=== PATIENT | female | born 1990 | race Caucasian/White ===

== ENCOUNTER 2017-08-06 22:06 | Observation (INO) | payer BC, OTHER ==
[2017-08-06 23:12] LABS: ABS Basophils 0 10^3/ul (0-0.2); ABS Eosinophils 0 10^3/ul (0-0.6); ABS Lymphocytes 1.6 10^3/ul (1.0-4.8); ABS Monocytes 0.8 10^3/ul (0-0.8); ABS Neutrophils 14.4 10^3/ul (1.5-7.7); ABS Nucleated RBC 0 10^3/ul; Eosinophil % 0.1 % (0-6); Hematocrit 39 % (35-47); Hemoglobin 12.9 g/dl (12.0-16.0); Lymphocyte % 9.3 % (25-47); Mean Corpuscular HGB Conc 33 g/dl (31-36); Mean Corpuscular Hemoglobin 28 pg (27-31); Mean Corpuscular Volume 85 fL (80-97); Mean Platelet Volume 8 um3 (7.4-10.4); Nucleated Red Blood Cells % 0; Platelet Count 285 10^3/ul (150-450); Red Blood Count 4.61 10^6/ul (4.0-5.4); Red Cell Distribution Width 14 % (10.5-15); White Blood Count 16.8 10^3/ul (3.5-10.8)
[2017-08-06] MEDS ORDERED: NS 0.9% 1000 ML* 1,000 ML IV ONE (23:52)
--- NOTE | 2017-08-07 00:08 | ED ---
Andrey Anguiano Thomas, scribed for Liberty Moreno MD on 08/06/17 at 2306 . Substance Abuse/Use - HPI Summary HPI Summary: The patient is a 27 year old female brought in by ambulance after she took however many of my Abilify were in the bottle at 19:00. She was trying to kill herself. She does not remember how many she took. She vomited in the ambulance en route to [facility]. She is tired. - History Of Current Complaint Chief Complaint: EDMentalHealth Stated Complaint: OVERDOSE Time Seen by Provider: 08/06/17 22:24 Hx Obtained From: Patient Ingestion History: Type/Name Of Drug - Abilify, others Overdose Characteristics: Oral Severity Currently: Mild Alleviating Factor(s): Nothing Associated Signs And Symptoms: Intentional Ingestion, Other: - Suicide attempt, vomiting Related Hx: Suicidal - Allergies/Home Medications Allergies/Adverse Reactions: Allergies Allergy/AdvReac Type Severity Reaction Status Date / Time No Known Allergies Allergy Verified 07/30/12 07:30 PMH/Surg Hx/FS Hx/Imm Hx Sensory History: Reports: Hx Contacts or Glasses - GLASSES Denies: Hx Hearing Aid Opthamlomology History: Reports: Hx Contacts or Glasses - GLASSES EENT History: Denies: Hx Deafness Psychiatric History: Reports: Hx Depression - Surgical History Hx Anesthesia Reactions: Yes - AFTER INTERTHECAL/EPIDURAL, SIGNIFIGANT B/P DROP, REQUIRED O2 AND MEDICATION Infectious Disease History: No Infectious Disease History: Denies: Traveled Outside the [place] in Last 30 Days - Family History Known Family History: Negative: Other - Patient denies relevant FHx - Social History Alcohol Use: None Substance Use Type: Reports: None Smoking Status (MU): Never Smoked Tobacco Review of Systems Negative: Fever Positive: Vomiting Positive: Other - Suicide attempt, intentional ingestion All Other Systems Reviewed And Are Negative: Yes Physical Exam - Summary Physical Exam Summary: VITAL SIGNS: Reviewed. GENERAL: Patient is a well-developed and nourished FEMALE who is lying comfortable in the stretcher. Patient is not in any acute respiratory distress. She is cooperative and morbidly obese. HEAD AND FACE: No signs of trauma. No ecchymosis, hematomas or skull depressions. No sinus tenderness. EYES: PERRLA, EOMI x 2, No injected conjunctiva, no nystagmus. EARS: Hearing grossly intact. Ear canals and tympanic membranes are within normal limits. MOUTH: Oropharynx within normal limits. NECK: Supple, trachea is midline, no adenopathy, no JVD, no carotid bruit, no c- spine tenderness, neck with full ROM. CHEST: Symmetric, no tenderness at palpation LUNGS: Clear to auscultation bilaterally. No wheezing or crackles. CVS: Regular rate and rhythm, S1 and S2 present, no murmurs or gallops appreciated. ABDOMEN: Soft, non-tender. No signs of distention. No rebound no guarding, and no masses palpated. Bowel sounds are normal. EXTREMITIES: FROM in all major joints, no edema, no cyanosis or clubbing. NEURO: Alert and oriented x 3. No acute neurological deficits. Speech is normal and follows commands. She is cooperative. SKIN: Dry and warm Triage Information Reviewed: Yes Vital Signs On Initial Exam: Initial Vitals Temp Pulse Resp BP Pulse Ox 97.3 F 95 16 135/89 96 08/06/17 22:15 08/06/17 22:15 08/06/17 22:15 08/06/17 22:15 08/06/17 22:15 Vital Signs Reviewed: Yes Diagnostics - Vital Signs Vital Signs Temp Pulse Resp BP Pulse Ox 08/06/17 22:41 104 22 98 08/06/17 22:39 133/82 08/06/17 22:15 97.3 F 95 16 135/89 96 - Laboratory Result Diagrams: 08/06/17 23:02 08/06/17 23:02 Lab Statement: Any lab studies that have been ordered have been reviewed, and results considered in the medical decision making process. - EKG 23:06 Cardiac Rate: NL EKG Rhythm: Sinus Rhythm - at 98 BPM EKG Interpretation: Normal axis, normal intervals, no acute ischemic change. Course/Dx - Course Assessment/Plan: The patient is a 27 year old female brought in by ambulance after she took however many of my Abilify were in the bottle at 19:00. She was trying to kill herself. She does not remember how many she took. She vomited in the ambulance en route to [facility]. She is tired. Bloodwork, urinalysis, and toxicology were obtained. The patient is admitted to Dr. Regalado. - Diagnoses Provider Diagnoses: Lexapro overdose - Physician Notifications Discussed Care Of Patient With: Miriam Regalado Time Discussed With Above Provider: 00:00 Instructed by Provider To: Admit As Inpatient Discharge - Discharge Plan Condition: Fair Disposition: ADMITTED TO [facility] Referrals: Payam Fried MD [Primary Care Provider] - The documentation as recorded by the Andrey quintana Thomas accurately reflects the service I personally performed and the decisions made by me, Liberty Moreno MD.
[2017-08-07] MEDS ORDERED: Docusate CAP* 100 MG PO PRN (00:30)
[2017-08-07] MEDS ORDERED: Senna TAB PO PRN (00:30)
[2017-08-07] MEDS ORDERED: Al Hydrox/Mg Hydrox/Simet LIQ* 30 ML UDC PO PRN (00:30)
[2017-08-07] MEDS ORDERED: Acetaminophen TAB* 325 MG PO PRN (00:30)
[2017-08-07] MEDS ORDERED: Ondansetron INJ* 2 MG/ML VIAL IV PRN (00:30)
[2017-08-07 02:15] LABS: Urine Appearance Cloudy; Urine Blood Negative (Negative); Urine Color Yellow; Urine Ketones 1+ (Negative); Urine Protein Negative (Negative); Urine Specific Gravity 1.016 (1.010-1.030); Urine Urobilinogen Negative (Negative)
--- NOTE | 2017-08-07 03:22 | HP ---
CC: Dr. Payam Fried * HISTORY AND PHYSICAL: DATE OF ADMISSION: 08/07/17 TIME OF EVALUATION: 0030. PRIMARY CARE PHYSICIAN: Payam Fried MD CHIEF COMPLAINT: Toxic ingestion. HISTORY OF PRESENT ILLNESS: This is a 27-year-old female with past medical history of depression, who presented to [facility] via EMS after ingesting multiple pills. On my encounter, the patient states she grabbed several medications, was not sure what they were, old medications or new ones, with the intent of harming herself. She then told her , who then called EMS. She states she took them before 9 p.m. According to the ER records, it was Lexapro, Abilify , Tylenol, and Benadryl. She said she has had old prescription medications of Lexapro, Abilify, and does not take them routinely anymore. She states she was recently started on Paxil, supposed to start therapy this week, but she says she is no longer feeling the will to live any longer. She never hurt herself in the past. She states she no longer feels suicidal. She was nauseated and vomiting several times earlier. No longer nauseous. No chest pain or shortness of breath. Otherwise, review of systems is negative. In the emergency room, the patient had labs, EKG. Poison Control was called. They recommended monitoring on telemetry overnight for 24 hours. The patient was given 1 L of normal saline and referred to the hospitalist service for further evaluation. PAST MEDICAL HISTORY: 1. Depression. 2. Morbid obesity. 3. History of a gastric sleeve in 2012. MEDICATIONS: The patient was just started on Paxil, she is not sure what dose it is. ALLERGIES: No known drug allergies. FAMILY HISTORY: Father with depression. SOCIAL HISTORY: The patient lives at home with her and her 2 children, ages 7 and 5. No alcohol, tobacco, or illicit drug use. She works in [employer]. Code status is full code. REVIEW OF SYSTEMS: A 14-point review of systems as mentioned in the HPI, otherwise negative. PHYSICAL EXAMINATION GENERAL: No acute distress, resting comfortably. VITAL SIGNS: Temp 97.3, pulse rate 100, respiratory rate 22, oxygen saturation 97% on room air, and blood pressure 120/60. HEENT: Head: Normocephalic. Pupils are dilated and reactive. Anicteric. Oropharynx, mucous membranes moist. NECK: Supple. No lymphadenopathy. RESPIRATORY: Clear to auscultation. No wheezing, rhonchi, or rales. CARDIAC: Tachycardic. No murmurs, rubs, or gallops. ABDOMEN: Soft, nontender, nondistended. EXTREMITIES: No clubbing, cyanosis, or edema. +2 DPs. NEUROLOGIC: Alert and oriented x3. No focal neurologic deficits. DIAGNOSTIC STUDIES/LAB DATA: White count 16.8, hemoglobin 12.9, hematocrit 39 , platelets 285. Sodium 138, potassium 3.6, chloride 108, bicarb 21, BUN 8, creatinine 0.89, glucose 115. TSH 3.23. Beta hCG 0.94. Tylenol level was 26. Salicylates less than 2.5. Serum alcohol less than 10. Radiographic data: EKG shows normal sinus rhythm with a QTc of 467, QRS of 96. ASSESSMENT AND PLAN: This is a 27-year-old female with past medical history of depression, who presents to the emergency room via EMS after having a suicide attempt with multiple medications. 1. Toxic ingestion with suicide attempt. Assessment/plan: The patient is going to be observed overnight on telemetry. Poison Control recommended repeating an EKG in 3 hours from initial one to monitor the QRS. The plan will be to treat with benzos if she becomes tachycardic or hypertensive. We will place Social Work consult and Psych consult and one-to-one on her as well. We will also repeat her Tylenol level 4 hours from her initial one. 2. Depression. We will hold her Paxil, as we do not know what dose she is on and will follow up with Psychiatry in terms of further regimen for her mental health concerns. 3. FEN. Regular diet. 4. DVT prophylaxis. The patient scores a low risk. We will encourage ambulation. PATIENT TIME: Greater than 45 minutes spent doing the history and physical, more than half time spent in direct patient contact. [id number]/[place] #: [id number] YADIEL
[2017-08-07] MEDS ORDERED: NS 0.9% 1000 ML* 1,000 ML IV ONE (12:47)
--- NOTE | 2017-08-07 12:55 | PN ---
Subjective Date of Service: 08/07/17 Interval History: Patient seen and examined. States she feels fatigue but ok. Denies n/v/d, no chest pain, no SOB, no headache or dizziness. Discussed findings of her eval with Dr. Rodgers, 1:1 discontinued, patient's in room. Requested patient to ambulate in hallway before DC tele to eval for gait or other symptoms. Objective Active Medications: Acetaminophen (Tylenol Tab*) 650 mg PO Q4H PRN PRN Reason: FEVER/PAIN Al Hydrox/Mg Hydrox/Simethicone (Maalox Plus*) 30 ml PO Q6H PRN PRN Reason: INDIGESTION Docusate Sodium (Colace Cap*) 100 mg PO BID PRN PRN Reason: CONSTIPATION Sodium Chloride (Ns 0.9% 1000 Ml*) 1,000 mls @ 500 mls/hr IV .PER RATE ONE Stop: 08/07/17 14:46 Ondansetron HCl (Zofran Inj*) 4 mg IV Q4H PRN PRN Reason: NAUSEA/VOMITING Senna (Senokot Tab*) 1 tab PO BID PRN PRN Reason: CONSTIPATION Vital Signs - 8 hr 08/07/17 08/07/17 04:55 08:56 Temperature 97.9 F 98.3 F Pulse Rate 107 94 Respiratory 18 18 Rate Blood Pressure 133/85 126/65 (mmHg) O2 Sat by Pulse 99 98 Oximetry Oxygen Devices in Use Now: None Appearance: Alert, NAD Eyes: No Scleral Icterus, - - Dilated pupils, 4mm Ears/Nose/Mouth/Throat: Clear Oropharnyx Neck: Trachea Midline Respiratory: Symmetrical Chest Expansion and Respiratory Effort, Clear to Auscultation Cardiovascular: NL Sounds; No Murmurs; No JVD, RRR Abdominal: NL Sounds; No Tenderness; No Distention Extremities: No Edema Skin: No Rash or Ulcers Neurological: Alert and Oriented x 3, NL Gait Nutrition: Taking PO's Result Diagrams: 08/06/17 23:02 08/06/17 23:02 Assess/Plan/Problems-Billing Assessment: - Patient Problems (1) Intentional overdose of drug in tablet form Code(s): T50.902A - POISONING BY UNSP DRUG/MEDS/BIOL SUBST, SELF-HARM, INIT SNOMED Code(s): 532379016 Comment: - Poison control contacted, monitor for QT changes - Patient with significant tachycardia, high 130's with PVCs with slow ambulation in hallway, returns to RSR when in bed; per Poison Control, give additional fluid bolus and continue on tele. Likely culprit is diphenhydramine which may take a few days to wash out - Psychiatric consult appreciated, 1:[address] Rodgers, patient has follow up intake appointment with Michael tomorrow for outpatient treatment. He feels she will be able to be DC to home with outpatient follow up as opposed to mandatory inpatient. (2) Depression Code(s): F32.9 - MAJOR DEPRESSIVE DISORDER, SINGLE EPISODE, UNSPECIFIED SNOMED Code(s): 23541924 Comment: - Mood stable, continue to monitor and contract for safety (3) Obesity (BMI 35.0-39.9 without comorbidity) Code(s): E66.9 - OBESITY, UNSPECIFIED SNOMED Code(s): 851941587 Comment: - S/P gastric sleeve Status and Disposition: Remain inpatient per Poison Control for Cardiac Monitoring.
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
[2017-08-08 07:39] VITALS: BP 128/79
--- NOTE | 2017-08-09 12:30 | DS ---
CC: Dr. Payam Fried; Dr. Miriam Regalado DISCHARGE SUMMARY: DATE OF ADMISSION: 08/06/17 DATE OF DISCHARGE: 08/08/17 PRIMARY CARE PROVIDER: Payam Fried MD. ATTENDING FOR THIS ADMISSION: Dr. Miriam Regalado. HOSPITAL COURSE: This is a 27-year-old female patient who was brought to the emergency department vi a EMS for intentional overdose of prescription and over-the- counter medications. The patient states that it was a combination of Lexapro, Abilify, Tylenol and Benadryl. The patient apparently had iam e issues with depression, was recently started on Paxil and was set to start intake therapy with [facility] when she had an argument I think at home and as an act of desperation had an impulsive ingestion of these pills saying that she did not want to live anymore. The patient was then brought to the emergency department. She was nauseous and vomiting at home. She was not gi olivia charcoal and there was no additional vomiting. While she was in the emergency department, poison control determined that the patient should be monitored on telemetry for at least 24 hours to look f or prolonged QT and any other cardiac arrhythmias. The patient was aggressively hydrated with normal saline and admitted for observation. At about the 24 hour thomas, we had the patient walk while she wa s on telemetry to see if would have any changes in her heart rhythm. She became tachycardic in the hi gh 130s and had some PVCs with just basic ambulation and not really any exertion. Poison control was contacted again. They advised giving more fluids and continued observation. Today on the , she is awake and alert. She has had no further episodes of tachycardia. No other arrhythmias. No other changes in her EKG. The patient had already arranged her intake with [facility]. She was seen by the psychiatrist, Dr. Rodgers, who recommended initially that her one-to-one watch that she was on be disc ontinued. The patient was stable. At that point, he did not feel that she was suicidal any longer. She has a good support system and already has outpatient followup, so he essentially cleared her for discharge back to home with outpatient behavioral health. DISCHARGE DIAGNOSES: 1. Intentional overdose. 2. History of depression and post-traumatic stress disorder. 3. Obesity, history of gastric sleeve in 2012. DISCHARGE MEDICATIONS: The patient may restart her Paxil 10 mg daily and then any further followup a nd recommendations when she starts her outpatient behavioral health plan. PHYSICAL EXAMINATION: The patient is awake, and alert in no acute distress. Vital Signs: Currently, blood pressure is 128/79, heart rate 97, respiratory rate 16, satting at 99% on room air. Temperatu re is 98.8. HEENT: The patient is atraumatic, normocephalic. PERRLA with nonicteric sclerae. Neck : Supple and nontender. No JVD noted. No thyromegaly appreciated. Cardiovascular: S1, S2 present . No murmurs, gallops, or rubs. Rate and rhythm are currently regular. She has no ectopy on telemet ry. Lungs: Clear bilaterally to auscultation with no wheezing, rhonchi or rales. Abdomen: Soft, n ontender, nondistended. Positive bowel sounds in all 4 quadrants. No organomegaly noted. : Defe rred. Musculoskeletal: There is no clubbing, no cyanosis and no edema. She has a steady gait. She has gross motor and sensation intact. Neurologic: She is grossly intact with no focal deficits. Ps ychiatric: She is calm and cooperative. She appears appropriate. She contracted for safety. She i s stating that she does not have current suicidal ideations and appears to have insight into this rec ent episode. DIAGNOSTIC STUDIES/LAB DATA: At the time of admission, WBC 16.8, RBC is 4.61, hemoglobin 12.9, hemat ocrit 39, platelets 285. Sodium 138, potassium 3.6, chloride 108, CO2 21, BUN 8, creatinine 0.89, GF R is 75. Glucose 115, calcium 8.8. Liver function: AST 16, ALT 11, alk phos 81, total protein 7.1, albumin 4.0. TSH 3.23. Urinalysis was negative. Toxicology: Urine toxicology shows acetaminophen l evel of 26 at admission and less than 15 on the . Serum alcohol was less than 10 and salicylates less than 2.50. The patient was ready for discharge on . All questions were answered. The patient verbalized hayes curtis understanding of the followups and her medications at home. She was instructed to follow up with hayes r primary care doctor and also with [facility]. Again, she has an intake appointment for 4 o'clock today. We are hoping that she can still meet that as she has the day of discharge today. If not, she has another intake set up for 08/24/17 and the [facility] is aware that the patien t was acutely hospitalized. ASH BROWN, DOOR REPAIRER BUS [id number]/[facility] #: [id number]
== END 2017-08-08 13:20 | disposition home or self-care (01) ==
LOC: ED 22:06 → MEDTELE 08-07 00:52
PROVIDERS: ADMIT Pediatrics; ATTEND Pediatrics
DX: T43.222A Poisoning by selective serotonin reuptake inhibitors, intentional self-harm, initial encounter (principal); R11.10 Vomiting, unspecified; Y92.9 Unspecified place or not applicable
CPT/HCPCS: 36415; 80053; 80320; 80329; 81003; 81015; 84443; 84702; 85025; 87086; 93005; 96374; 99284; G0378; G0480

== ENCOUNTER 2022-12-18 17:37 | Inpatient (IN) ==
[2022-12-18] MEDS ORDERED: HYDROcodone/Acetamin 10/325 TAB (NF) PO ONE (18:06)
[2022-12-18 18:35] LABS: ABS Basophils 0.1 10^3/uL (0.0-0.1); ABS Eosinophils 0.1 10^3/uL (0.0-0.5); ABS Lymphocytes 2.1 10^3/uL (1.0-4.8); ABS Monocytes 0.6 10^3/uL (0.0-0.9); ABS Neutrophils 5.9 10^3/uL (1.5-7.6); ABS Nucleated RBC 0.01 10^3/ul; Eosinophil % 1.5 %; Hematocrit 35.2 % (35-45); Hemoglobin 11.3 g/dL (11.5-14.3); Lymphocyte % 24.1 %; Mean Corpuscular Hemoglobin 24.6 pg (27-33); Mean Corpuscular Hgb Conc 32.2 g/dL (31-36); Mean Corpuscular Volume 76.5 fL (80-97); Mean Platelet Volume 6.8 fL (7.5-11.2); Nucleated Red Blood Cells % 0.2 /100 WBC (0.0-0.4); Platelet Count 479 10^3/uL (150-450); Red Cell Distribution Width 15.8 % (12-17); White Blood Count 8.9 10^3/uL (3.8-11.8)
[2022-12-18 18:39] LABS: Urine Appearance Cloudy; Urine Bilirubin Negative (Negative); Urine Blood 3+ (Negative); Urine Color Yellow; Urine Glucose Negative (Negative); Urine Ketones Negative (Negative); Urine Nitrite Negative (Negative); Urine Protein Negative (Negative); Urine Specific Gravity 1.009 (1.002-1.030); Urine Urobilinogen Negative (Negative)
[2022-12-18 18:48] LABS: Urine Bacteria 1+ (Absent); Urine Red Blood Cell 1+(3-5/hpf) (Absent); Urine Squamous Epithelial Cell Present (Absent); Urine White Blood Cell Absent (Absent)
[2022-12-18 18:51] LABS: ALT 8 U/L (7-52); AST 18 U/L (13-39); Albumin 4.1 g/dL (3.2-5.2); Alkaline Phosphatase 93 U/L (35-149); Anion Gap 12 mmol/L (2-16); Blood Urea Nitrogen 7 mg/dL (6-24); CO2 Carbon Dioxide 20 mmol/L (22-32); Calcium 9.3 mg/dL (8.6-10.3); Chloride 105 mmol/L (101-111); Creatinine, Serum 0.85 mg/dL (0.51-0.95); Globulin 4.1 g/dL (2-4); Glucose 105 mg/dL (70-100); Sodium 137 mmol/L (135-145); Total Protein 8.2 g/dL (6.4-8.9); eGFR CKD-EPI 92.1 (>60)
[2022-12-18 18:53] LABS: Urine Benzodiazepine Screen None Detected (None Detect); Urine Cannabinoids Screen Presumptive Positive (None Detect); Urine Opiates Screen Presumptive Positive (None Detect)
[2022-12-18 18:57] LABS: HCG Pregnancy 1.15 mIU/mL
[2022-12-18 19:15] LABS: Acetaminophen < 15 mcg/mL; Alcohol, S < 13 mg/dL (<13); Salicylate < 2.50 mg/dL (<30)
[2022-12-18 19:18] LABS: TSH Ultra Thyroid Stim Horm 0.55 mcIU/mL (0.34-5.60)
[2022-12-18] MEDS ORDERED: Al Hydrox/Mg Hydrox/Simet LIQ 30 ML UDC PO PRN (23:04)
[2022-12-19] MEDS: HYDROcodone/Acetamin 10/325 TAB (NF) PO PRN ×2 (08:06→14:18)
[2022-12-19 08:14] LABS: HDL Cholesterol 80.7 mg/dL
[2022-12-19] MEDS: Vitamin THERAPEUTIC TAB PO SCH (09:56)
[2022-12-20] MEDS: HYDROcodone/Acetamin 10/325 TAB (NF) PO PRN ×2 (06:51→16:51)
[2022-12-20] MEDS: Vitamin THERAPEUTIC TAB PO SCH (10:04)
[2022-12-21] MEDS: HYDROcodone/Acetamin 10/325 TAB (NF) PO PRN ×2 (06:06→12:52)
[2022-12-21] MEDS: Vitamin THERAPEUTIC TAB PO SCH (09:13)
[2022-12-21 10:30] VITALS: BP 138/89
== END 2022-12-21 14:41 | disposition home or self-care (01) | DRG 753 ==
LOC: ED 17:37 → EDHOLD 22:53 → BSU 22:59
PROVIDERS: ADMIT Psychiatry & Neurology Psychiatry; ATTEND Psychiatry & Neurology Psychiatry

== ENCOUNTER 2024-05-22 01:53 | Observation (INO) ==
[2024-05-22] MEDS ORDERED: Morphine 2 MG/ML SYRINGE IV PRN (04:34)
[2024-05-22] MEDS ORDERED: Ondansetron 4 mg VIAL 2 MG/ML 2 ml VIAL IV PRN (04:35)
[2024-05-22] MEDS: Lactated Ringers 1000 ml BAG 1,000 ML IV SCH (05:07)
[2024-05-22 05:09] LABS: ABS Basophils 0.1 10^3/uL (0.0-0.1); ABS Eosinophils 0.1 10^3/uL (0.0-0.5); ABS Monocytes 0.7 10^3/uL (0.0-0.9); ABS Neutrophils 5.7 10^3/uL (1.5-7.6); Eosinophil % 1.2 %; Hematocrit 34.6 % (35-45); Hemoglobin 11.6 g/dL (11.5-14.3); Lymphocyte % 37.8 %; Mean Corpuscular Hemoglobin 27.5 pg (27-33); Mean Corpuscular Hgb Conc 33.6 g/dL (31-36); Mean Platelet Volume 7.4 fL (7.5-11.2); Platelet Count 340 10^3/uL (150-450); Red Blood Count 4.22 10^6/uL (3.63-4.92); Red Cell Distribution Width 14.7 % (12-17); White Blood Count 10.7 10^3/uL (3.8-11.8)
[2024-05-22] MEDS: Acetaminophen IV 1 GM/100ML 1,000 MG/100 ML BAG IV PRN (05:09)
[2024-05-22] MEDS: Morphine 2 MG/ML SYRINGE IV PRN (05:36)
[2024-05-22] MEDS: Enoxaparin 40 MG/0.4 ML SYR SUBCUT SCH (05:37)
[2024-05-22 05:46] LABS: ALT 8 U/L (7-52); AST 12 U/L (13-39); Albumin 3.6 g/dL (3.2-5.2); Albumin/Globulin Ratio 1.3 (1-3); Alkaline Phosphatase 93 U/L (35-149); Anion Gap 10 mmol/L (2-16); Blood Urea Nitrogen 14 mg/dL (6-24); CO2 Carbon Dioxide 25 mmol/L (22-32); Calcium 8.6 mg/dL (8.6-10.3); Chloride 104 mmol/L (101-111); Creatinine, Serum 0.99 mg/dL (0.51-0.95); Direct Bilirubin 0.1 mg/dL (0.03-0.18); Globulin 2.7 g/dL (2-4); Glucose 77 mg/dL (70-100); Indirect Bilirubin 0.4 mg/dL (0.3-1.0); Potassium 4.1 mmol/L (3.5-5.0); Sodium 139 mmol/L (135-145); Total Bilirubin 0.5 mg/dL (0.2-1.0); Total Protein 6.3 g/dL (6.4-8.9); eGFR CKD-EPI 75.8 (>60)
[2024-05-22] MEDS: metroNIDAZOLE IV 500 MG/100ML 500 MG/100 ML BAG IVPB SCH (06:40)
[2024-05-22 06:45] LABS: HCG Pregnancy < 0.60 mIU/mL
[2024-05-22] MEDS: Ciprofloxacin 400mg IVPREMIX 400 MG/200 ML BAG IVPB SCH (06:51)
[2024-05-22] MEDS: CMCS:Atomoxetine 40 mg CAP (NF) PO SCH (08:12)
[2024-05-22 12:20] VITALS: BP 109/71
== END 2024-05-22 12:21 | disposition home or self-care (01) ==
LOC: ED 01:53 → EDHOLD 01:53 → SUATTDRO 03:48 → EDHOLD 12:20
PROVIDERS: ADMIT Internal Medicine; ATTEND Surgery Surgical Critical Care